=== PATIENT | male | born 1960 | race Caucasian/White ===

== ENCOUNTER 2017-03-23 21:02 | Emergency (ER) | payer BC, MEDICARE ==
[2017-03-23 21:15] VITALS: BP 147/81
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
== END 2017-03-23 22:45 | disposition home or self-care (01) ==
LOC: CC.ED 21:02
DX: S02.31XA Fracture of orbital floor, right side, initial encounter for closed fracture (principal); S00.412A Abrasion of left ear, initial encounter; S00.31XA Abrasion of nose, initial encounter; S00.01XA Abrasion of scalp, initial encounter; E11.9 Type 2 diabetes mellitus without complications; E03.9 Hypothyroidism, unspecified; Z88.8 Allergy status to other drugs, medicaments and biological substances; Z88.2 Allergy status to sulfonamides; Z79.4 Long term (current) use of insulin; Z94.1 Heart transplant status; Z87.891 Personal history of nicotine dependence; Y04.0XXA Assault by unarmed brawl or fight, initial encounter
CPT/HCPCS: 70450; 70486; 99284

== ENCOUNTER 2021-04-15 21:58 | Emergency (ER) | payer BC, MEDICARE ==
[2021-04-15 23:15] LABS: CHLORIDE,CL 95 mEq/L (98-106); SODIUM,NA 132 mEq/L (136-145)
[2021-04-16 01:08] VITALS: BP 142/89; PULSE 74
[2021-04-16] MEDS: Sodium Chloride 0.9% 1,000 ML ONE (01:28)
--- NOTE | 2021-04-16 09:29 | EDM.PDOC ---
ED HPI GENERAL MEDICAL PROBLEM - General Chief Complaint: General Stated Complaint: "have the flu" Time Seen by Provider: 04/15/21 22:20 Source of Information: Reports: Patient History Limitations: Reports: No Limitations - History of Present Illness INITIAL COMMENTS - FREE TEXT/NARRATIVE: Bruno Roe is a 60 year old male who presents to ER with complaints of diarrhea for the last 5-6 days. Has not had much of an appetite, occasional bouts of nausea. No vomiting. Not drinking as much as his norm. No sinus congestion, ear pain or sore throat. No fevers. No cough or chest congestion. Denies urinary complaints. Admits to feeling weak. Patient does have complicated history with past heart and lung transplants and throat cancer in the last year. Does much of his doctoring through [place]. Onset: Gradual Duration: Day(s):, Waxing/Waning Location: Reports: Abdomen Quality: Reports: Ache, Dull Severity: Mild Associated Symptoms: Reports: Malaise, Nausea/Vomiting, Weakness. Denies: Confusion, Chest Pain, Cough, Diaphoresis, Fever/Chills, Headaches, Shortness of Breath - Related Data Allergies Allergy/AdvReac Type Severity Reaction Status Date / Time amitriptyline Allergy unknown Verified 04/16/21 00:59 dronedarone [From Multaq] Allergy Cannot Verified 04/16/21 00:59 Remember hydrocodone Allergy Cannot Verified 04/16/21 00:59 Remember zolpidem [From Ambien] Allergy Cannot Verified 04/16/21 00:59 Remember Home Meds: Home Meds Famotidine [Take Home: Famotidine 20 MG, 3 Tab Pack] 1 tab PO BEDTIME 03/23/17 [History] Furosemide 40 mg PO DAILY 03/23/17 [History] Levothyroxine Sodium 125 mcg PO DAILY 03/23/17 [History] Losartan [Cozaar] 50 mg PO DAILY 03/23/17 [History] Rosuvastatin [Crestor] 20 mg PO DAILY 03/23/17 [History] Voriconazole 200 mg PO Q12H 03/23/17 [History] traMADol HCl [Tramadol HCl] 50 - 100 mg PO Q6H PRN 03/23/17 [History] Cholecalciferol (Vitamin D3) [Vitamin D3] 1,000 units PO DAILY 07/22/17 [History] Fluticasone Propionate [Flovent] 50 mcg INH BID PRN 07/22/17 [History] Multivitamin [Multi-Vitamin Daily] 1 tab PO DAILY 07/22/17 [History] Nph, Human Insulin Isophane [HumuLIN N] 25 unit SUBCUT WITHDINNER 07/22/17 [History] Nph, Human Insulin Isophane [HumuLIN N] 35 units SUBCUT WITHBREAKFAST 07/22/17 [History] Olopatadine HCl 1 drop EYEBOTH BID 07/22/17 [History] Sulfamethoxazole/Trimethoprim [Bactrim 400-80 MG] 1 tab PO Q48H 07/22/17 [History] amLODIPine Besylate [Amlodipine Besylate] 10 mg PO DAILY 07/22/17 [History] cycloSPORINE, Modified [Cyclosporine Modified] 50 mg PO BID 07/22/17 [History] fluorouraciL [Fluorouracil] 1 applic TOP DAILY 07/22/17 [History] mycophenolate mofetiL [Cellcept] 1,000 mg PO BID 07/22/17 [History] predniSONE [Magno] 4 mg PO DAILY 07/22/17 [History] Past Medical History Respiratory History: Reports: Sleep Apnea Endocrine/Metabolic History: Reports: Diabetes, Type II, Hypothyroidism Oncologic (Cancer) History: Reports: Malignant Melanoma Dermatologic History: Reports: Melanoma - Past Surgical History Cardiovascular Surgical History: Reports: Other (See Below) Other Cardiovascular Surgeries/Procedures: heart transplant Social & Family History - Family History Family Medical History: No Pertinent Family History - Tobacco Use Tobacco Use Status *Q: Never Tobacco User Second Hand Smoke Exposure: No ED ROS GENERAL - Review of Systems Review Of Systems: See Below Constitutional: Reports: Malaise, Weakness, Fatigue, Decreased Appetite. Denies: Fever, Chills HEENT: Denies: Sinus Problem, Throat Pain Respiratory: Reports: Shortness of Breath (states has chronic shortness of breath, does not feel any worse at this time) Cardiovascular: Denies: Chest Pain, Edema, Lightheadedness Endocrine: Reports: Fatigue GI/Abdominal: Reports: Abdominal Pain (dull ache at times), Diarrhea, Nausea. Denies: Hematochezia, Melena, Vomiting : Denies: Dysuria Musculoskeletal: Reports: No Symptoms Skin: Reports: No Symptoms Neurological: Reports: Weakness. Denies: Headache ED EXAM, GENERAL - Physical Exam Exam: See Below Exam Limited By: No Limitations General Appearance: Alert, WD/WN, No Apparent Distress Ears: Normal External Exam, Normal TMs Nose: Normal Inspection, Normal Mucosa, No Blood Throat/Mouth: Normal Inspection, Normal Oropharynx Head: Normocephalic Neck: Normal Inspection, Supple, Non-Tender Respiratory/Chest: No Respiratory Distress, Lungs Clear, Normal Breath Sounds Cardiovascular: Regular Rate, Rhythm, No Edema GI/Abdominal: Normal Bowel Sounds, Soft, Non-Tender Extremities: No Pedal Edema, Other (venous stasis changes to legs) Neurological: Alert, Oriented Skin Exam: Warm, Dry Course - Vital Signs Last Recorded V/S: Last Vital Signs Temp 99.1 F 04/16/21 01:00 Pulse 74 04/16/21 01:00 Resp 18 04/16/21 01:00 BP 142/89 H 04/16/21 01:00 Pulse Ox 95 04/16/21 01:00 - Orders/Labs/Meds Labs: Laboratory Tests 04/15/21 04/15/21 04/15/21 Range/Units 22:30 22:30 22:30 WBC 3.2 L (4.0-11.0) 10^3/uL RBC 6.00 (4.50-6.00) x10^6/uL Hgb 16.3 (14.0-18.0) g/dL Hct 49.6 (42.0-52.0) % MCV 82.7 L (83.0-97.0) fL MCH 27.2 (27.0-32.0) pg MCHC 32.9 (32.0-36.0) g/dL RDW Coeff of Giovanni 14.4 (11.0-15.0) % Plt Count 108 L (150-400) 10^3/uL Add Manual Diff Yes Neutrophils % (Manual) 69 (35-85) % Lymphocytes % (Manual) 18 L (21-55) % Monocytes % (Manual) 13 H (2-12) % Absolute Neutrophils 2.21 (1.80-7.00) 10^3/uL Lymphocytes # (Manual) 0.58 L (1.00-4.80) 10^3/uL Monocytes # (Manual) 0.42 (0.00-0.80) 10^3/uL Sodium (136-145) mEq/L Potassium (3.5-5.0) mEq/L Chloride (98-106) mEq/L Carbon Dioxide (21-32) mmol/L BUN (7-18) mg/dL Creatinine (0.7-1.3) mg/dL Est Cr Clr Drug Dosing Estimated GFR (MDRD) (>=60) mL/min Glucose (75-99) mg/dL Calcium (8.4-10.1) mg/dL Total Bilirubin (0.0-1.0) mg/dL AST (15-37) U/L ALT (12-78) U/L Alkaline Phosphatase (46-116) U/L C-Reactive Protein (0.2-0.8) mg/dL Total Protein (6.4-8.2) g/dL Albumin (3.4-5.0) g/dL Urine Color Yellow (YELLOW) Urine Appearance Slightly cloudy (CLEAR) Urine pH 6.5 (4.5-8.0) Ur Specific [place] 1.025 H (1.003-1.020) Urine Protein >=300 H (NEGATIVE) mg/dL Urine Glucose (UA) 500 H (NEGATIVE) mg/dL Urine Ketones Negative (NEGATIVE) mg/dL Urine Occult Blood Moderate H (NEGATIVE) Urine Nitrite Negative (NEGATIVE) Urine Bilirubin Negative (NEGATIVE) Urine Urobilinogen 0.2 (0.2-1.0) EU/dL Ur Leukocyte Esterase Negative (NEGATIVE) Urine RBC 5-10 H (0-5) /HPF Urine WBC 0-5 (0-5) /HPF Ur Squamous Epith Cells Few H (NOT SEEN) /HPF Amorphous Sediment Few H (NOT SEEN) /HPF Urine Bacteria Few H (NOT SEEN) /HPF SARS CoV-2 RNA Rapid STEFANI Positive H (NEGATIVE) 04/15/21 Range/Units 22:30 WBC (4.0-11.0) 10^3/uL RBC (4.50-6.00) x10^6/uL Hgb (14.0-18.0) g/dL Hct (42.0-52.0) % MCV (83.0-97.0) fL MCH (27.0-32.0) pg MCHC (32.0-36.0) g/dL RDW Coeff of Giovanni (11.0-15.0) % Plt Count (150-400) 10^3/uL Add Manual Diff Neutrophils % (Manual) (35-85) % Lymphocytes % (Manual) (21-55) % Monocytes % (Manual) (2-12) % Absolute Neutrophils (1.80-7.00) 10^3/uL Lymphocytes # (Manual) (1.00-4.80) 10^3/uL Monocytes # (Manual) (0.00-0.80) 10^3/uL Sodium 132 L (136-145) mEq/L Potassium 3.5 (3.5-5.0) mEq/L Chloride 95 L (98-106) mEq/L Carbon Dioxide 27 (21-32) mmol/L BUN 42 H (7-18) mg/dL Creatinine 2.3 H (0.7-1.3) mg/dL Est Cr Clr Drug Dosing TNP Estimated GFR (MDRD) 29 L (>=60) mL/min Glucose 287 H D (75-99) mg/dL Calcium 8.9 (8.4-10.1) mg/dL Total Bilirubin 0.3 (0.0-1.0) mg/dL AST 100 H (15-37) U/L ALT 74 (12-78) U/L Alkaline Phosphatase 129 H (46-116) U/L C-Reactive Protein 12.2 H (0.2-0.8) mg/dL Total Protein 7.4 (6.4-8.2) g/dL Albumin 2.2 L (3.4-5.0) g/dL Urine Color (YELLOW) Urine Appearance (CLEAR) Urine pH (4.5-8.0) Ur Specific [place] (1.003-1.020) Urine Protein (NEGATIVE) mg/dL Urine Glucose (UA) (NEGATIVE) mg/dL Urine Ketones (NEGATIVE) mg/dL Urine Occult Blood (NEGATIVE) Urine Nitrite (NEGATIVE) Urine Bilirubin (NEGATIVE) Urine Urobilinogen (0.2-1.0) EU/dL Ur Leukocyte Esterase (NEGATIVE) Urine RBC (0-5) /HPF Urine WBC (0-5) /HPF Ur Squamous Epith Cells (NOT SEEN) /HPF Amorphous Sediment (NOT SEEN) /HPF Urine Bacteria (NOT SEEN) /HPF SARS CoV-2 RNA Rapid STEFANI (NEGATIVE) Meds: Medications Discontinued Medications Generic Name Dose Route Start Last Admin Trade Name Freq PRN Reason Stop Dose Admin Sodium Chloride Confirm 04/15/21 22:27 04/16/21 01:28 Normal Saline Administered 04/15/21 22:28 Not Given Dose 1,000 mls @ as directed .ROUTE .K-MED ONE - Re-Assessments/Exams Free Text/Narrative Re-Assessment/Exam: 04/15 Justyn hines while seeing patient in ER. Labs reported out and viewed by paper copy at that time. Noted mild elevation of liver enzymes, creatinine elevated. WBC low. CRP high at 12.2. Discussed these with patient and . REviewed MyChart from [place]. No elevation of liver enzymes in past. Creatinine with last draw was 1.76. Patient felt to be dehydrated likely from persistent diarrhea. Discussed observation stay with IV fluids. Lab then called with notification of covid positive result. Want to be judicious then with IV fluids and patient feels can hydrate at home. Due to comorbidities, patient felt to be good candidate for ReGen. Would like to return after dinner to have infusion. notified as well and agrees with plan. Patient [place] the [place] from the hospital so advised to notify us of any change in status and can return back if feels need for admission. Departure - Departure Time of Disposition: 23:30 Disposition: Home, Self-Care 01 Condition: Fair Clinical Impression: COVID-19 in immunocompromised patient - Discharge Information *PRESCRIPTION DRUG MONITORING PROGRAM REVIEWED*: No *COPY OF PRESCRIPTION DRUG MONITORING REPORT IN PATIENT ZACHARIAH: No Referrals: Alex Arroyo MD [Primary Care Provider] - Forms: ED Department Discharge Sepsis Event Note (ED) - Evaluation Sepsis Screening Result: No Definite Risk
== END 2021-04-15 23:20 | disposition home or self-care (01) ==
LOC: CC.ED 21:58
DX: U07.1 COVID-19 (principal); E11.9 Type 2 diabetes mellitus without complications; E03.9 Hypothyroidism, unspecified; D84.89 Other immunodeficiencies; Z88.8 Allergy status to other drugs, medicaments and biological substances; Z88.5 Allergy status to narcotic agent; Z79.899 Other long term (current) drug therapy
CPT/HCPCS: 36415; 80053; 81001; 85025; 86140; 99284; U0002

== ENCOUNTER 2021-04-24 18:23 | Emergency (ER) | payer BC, MEDICARE ==
[2021-04-24] MEDS ORDERED: Albuterol/Ipratropium 3.0-0.5 MG/3 ML Neb Soln ONE (18:33)
[2021-04-24] MEDS ORDERED: Albuterol/Ipratropium 3.0-0.5 MG/3 ML Neb Soln NEB ONE (19:02)
--- NOTE | 2021-04-24 19:18 | EDM.PDOC ---
ED HPI GENERAL MEDICAL PROBLEM - General Chief Complaint: General Stated Complaint: weak Time Seen by Provider: 04/24/21 18:55 Source of Information: Reports: Patient History Limitations: Reports: No Limitations - History of Present Illness INITIAL COMMENTS - FREE TEXT/NARRATIVE: States that he had COVID April 15. He had monoclonal antibody infusion on the . Was doing OK at home until he fell about 5-6 days ago. He fell onto the left side of his chest and abdomen. He is having pain to the left abdomen at this time. States that it feels swollen compared to the right side. He states that it is worse with cough or certain movements. He states that he has been drinking powerade or gatorade today as he hasn't felt well and was trying to stay hydrated. He does not check his BS at home and reports that his last A1c at [place] was 7.6%. He is not able to tell me the numbers to the last creatinine and liver enzymes that he had at [facility] in November but states that they were normal. He was due to go to [place] this week for his 3 month follow up and it was postponed until May due to the COVID diagnosis. He states that he did feel very SOB earlier and was coughing more. He was given duoneb treatment when he arrived here as he was wheezing and that did improve his wheezing and he states that he felt better. He was able to cough up thick white mucus and he did feel better. Sats remain 90-93% on 3 liters oxygen. He states that he is not on oxygen at home. He reports that he normally runs at that sat on room air when he has had it checked at app. He does have cough that is congested and not productive at this time. He had heart transplant at [place] 2010. 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 Has return appt at [place] about every 3 months for these issues. Onset: Gradual Location: Reports: Chest, Abdomen Associated Symptoms: Reports: Cough. Denies: cough w sputum, Fever/Chills - Related Data Allergies Allergy/AdvReac Type Severity Reaction Status Date / Time amitriptyline Allergy unknown Verified 04/24/21 18:25 dronedarone [From Multaq] Allergy Cannot Verified 04/24/21 18:25 Remember hydrocodone Allergy Cannot Verified 04/24/21 18:25 Remember zolpidem [From Ambien] Allergy Cannot Verified 04/24/21 18:25 Remember Home Meds: Home Meds Levothyroxine Sodium 125 mcg PO DAILY 03/23/17 [History] Losartan [Cozaar] 50 mg PO DAILY 03/23/17 [History] Rosuvastatin [Crestor] 20 mg PO DAILY 03/23/17 [History] Voriconazole 200 mg PO Q12H 03/23/17 [History] traMADol HCl [Tramadol HCl] 50 - 100 mg PO Q6H PRN 03/23/17 [History] Cholecalciferol (Vitamin D3) [Vitamin D3] 1,000 units PO DAILY 07/22/17 [History] Multivitamin [Multi-Vitamin Daily] 1 tab PO DAILY 07/22/17 [History] Nph, Human Insulin Isophane [HumuLIN N] 25 unit SUBCUT WITHDINNER 07/22/17 [History] Nph, Human Insulin Isophane [HumuLIN N] 35 units SUBCUT WITHBREAKFAST 07/22/17 [History] Olopatadine HCl 1 drop EYEBOTH BID 07/22/17 [History] mycophenolate mofetiL [Cellcept] 1,000 mg PO BID 07/22/17 [History] predniSONE [Magno] 4 mg PO DAILY 07/22/17 [History] Famotidine 20 mg PO BEDTIME 04/24/21 [History] Itraconazole 200 mg PO DAILY 04/24/21 [History] Metoprolol Succinate 50 mg PO DAILY 04/24/21 [History] Sirolimus 0.5 mg PO DAILY 04/24/21 [History] Torsemide 20 mg PO DAILY 04/24/21 [History] cloNIDine [Catapres-TTS 1] 1 patch TD Q7D 04/24/21 [History] Past Medical History Respiratory History: Reports: Sleep Apnea Endocrine/Metabolic History: Reports: Diabetes, Type II, Hypothyroidism Oncologic (Cancer) History: Reports: Malignant Melanoma Dermatologic History: Reports: Melanoma - Past Surgical History Cardiovascular Surgical History: Reports: Other (See Below) Other Cardiovascular Surgeries/Procedures: heart transplant Social & Family History - Family History Family Medical History: No Pertinent Family History - Tobacco Use Tobacco Use Status *Q: Never Tobacco User Second Hand Smoke Exposure: No - Living Situation & Occupation Living situation: Reports: , with Spouse Occupation: Disabled ED ROS GENERAL - Review of Systems Review Of Systems: See Below Constitutional: Reports: Weakness. Denies: Fever, Chills HEENT: Reports: No Symptoms Respiratory: Reports: Shortness of Breath, Cough. Denies: Hemoptysis Cardiovascular: Reports: No Symptoms GI/Abdominal: Reports: Abdominal Pain. Denies: Constipation, Diarrhea, Distension, Nausea, Vomiting : Reports: No Symptoms Musculoskeletal: Reports: No Symptoms Neurological: Denies: Confusion, Dizziness, Headache, Syncope Psychiatric: Reports: No Symptoms ED EXAM, GENERAL - Physical Exam Exam: See Below Exam Limited By: No Limitations General Appearance: Alert, WD/WN, Moderate Distress Ears: Normal External Exam, Normal Canal Nose: Normal Inspection Throat/Mouth: Normal Inspection, Normal Oropharynx Head: Atraumatic, Normocephalic Neck: Normal Inspection, Supple, Non-Tender, Full Range of Motion Respiratory/Chest: Wheezing, Other (No tenderness to anterior rib cage.). No: Rales Cardiovascular: Regular Rate, Rhythm, No Edema GI/Abdominal: Normal Bowel Sounds, Tender (Tender to the left side of abdomen with any palpation. Bowel sounds are present to all quadrants.) Back Exam: Normal Inspection Extremities: Normal Inspection, No Pedal Edema Neurological: Alert, Oriented, Normal Cognition Skin Exam: Warm, Dry, Intact Course - Vital Signs Last Recorded V/S: Last Vital Signs Temp 98.0 F 04/24/21 18:25 Pulse 83 04/24/21 18:25 Resp 18 04/24/21 18:25 BP 126/82 04/24/21 18:25 Pulse Ox 87 L 04/24/21 18:25 - Orders/Labs/Meds Orders: Active Orders 24 hr Category Date Time Status Chest 2V [CR] Stat Exams 04/24/21 18:28 Ordered C-REACTIVE PROTEIN [CHEM] Stat Lab 04/24/21 18:50 Received CMP [COMPREHENSIVE METABOLIC PN,CMP] [CHEM] Stat Lab 04/24/21 18:50 Received Labs: Laboratory Tests 04/24/21 Range/Units 18:50 WBC 4.6 (4.0-11.0) 10^3/uL RBC 5.99 (4.50-6.00) x10^6/uL Hgb 16.2 (14.0-18.0) g/dL Hct 48.6 (42.0-52.0) % MCV 81.1 L (83.0-97.0) fL MCH 27.0 (27.0-32.0) pg MCHC 33.3 (32.0-36.0) g/dL RDW Coeff of Giovanni 14.2 (11.0-15.0) % Plt Count 154 (150-400) 10^3/uL Immature Gran % (Auto) 0.7 (0.0-4.9) % Neut % (Auto) 77.9 H (41-71) % Lymph % (Auto) 8.3 L (24-44) % [place] % (Auto) 12.7 H (0-10) % Eos % (Auto) 0.2 (0-6) % Baso % (Auto) 0.2 (0-1) % Neut # (Auto) 3.57 (1.80-8.00) x10^3/uL Lymph # (Auto) 0.38 L (0.60-5.00) 10^3/uL [place] # (Auto) 0.58 (0.00-1.50) 10^3/uL Eos # (Auto) 0.01 (0.00-1.50) 10^3/uL Baso # (Auto) 0.01 (0.00-0.50) 10^3/uL Immature Gran # (Auto) 0.03 (0.00-0.49) 10^3/uL Meds: Medications Discontinued Medications Generic Name Dose Route Start Last Admin Trade Name Freq PRN Reason Stop Dose Admin Albuterol/Ipratropium Confirm 04/24/21 18:33 Albuterol/Ipratropium 3.0-0.5 Mg/3 Ml Neb Soln Administered 04/24/21 18:34 Dose 3 ml .ROUTE .STK-MED ONE - Re-Assessments/Exams Free Text/Narrative Re-Assessment/Exam: 04/24/21 20:[address] Balta Joyner transplant MD at [facility]. Labs reviewed with the doctor and he does request that he be transferred and he is accepting MD. Will get additional labs that he requested prior to transfer. He did request that he be retested for COVID as he is immunocompromised. They will fly fixed wing to [place] to pick him up. We will transfer ALS to [place]. Departure - Departure Time of Disposition: 20:56 Disposition: DC/Tfer to Acute Hospital 02 Condition: Serious Clinical Impression: Hypoxia, COVID-19, Heart transplant recipient Renal failure (ARF), acute on chronic Qualifiers: Acute renal failure type: unspecified Chronic kidney disease stage: unspecified stage Qualified Code(s): N17.9 - Acute kidney failure, unspecified; N18.9 - Chronic kidney disease, unspecified Diabetes mellitus Qualifiers: Diabetes mellitus type: type 2 Diabetes mellitus care home insulin use: with care home use Diabetes mellitus complication status: with hyperglycemia Qualified Code(s): E11.65 - Type 2 diabetes mellitus with hyperglycemia; Z79.4 - termite exterminator helper (current) use of insulin - Discharge Information *PRESCRIPTION DRUG MONITORING PROGRAM REVIEWED*: Not Applicable *COPY OF PRESCRIPTION DRUG MONITORING REPORT IN PATIENT ZACHARIAH: Not Applicable Additional Instructions: Transfer to [place] per [place] fixed wing. [facility] ALS ambulance will transfer to [facility] to meet the plane. Sepsis Event Note (ED) - Evaluation Sepsis Screening Result: No Definite Risk - Focused Exam Vital Signs: Vital Signs Temp Pulse Resp BP Pulse Ox 04/24/21 18:25 98.0 F 83 18 126/82 87 L - Problem List & Annotations (1) Diabetes mellitus SNOMED Code(s): 58051508 Code(s): E11.9 - TYPE 2 DIABETES MELLITUS WITHOUT COMPLICATIONS Status: Acute Priority: High Current Visit: Yes Qualifiers: Diabetes mellitus type: type 2 Diabetes mellitus care home insulin use: with lobsterman use Diabetes mellitus complication status: with hyperglycemia Qualified Code(s): E11.65 - Type 2 diabetes mellitus with hyperglycemia; Z79.4 - custodial (current) use of insulin (2) Heart transplant recipient SNOMED Code(s): 357299583 Code(s): Z94.1 - HEART TRANSPLANT STATUS Status: Chronic Priority: Medium Current Visit: Yes (3) Hypoxia SNOMED Code(s): 028699098 Code(s): R09.02 - HYPOXEMIA Status: Acute Priority: High Current Visit: Yes (4) Renal failure (ARF), acute on chronic SNOMED Code(s): 293188012 Code(s): N17.9 - ACUTE KIDNEY FAILURE, UNSPECIFIED; N18.9 - CHRONIC KIDNEY DISEASE, UNSPECIFIED Status: Acute Current Visit: Yes Qualifiers: Acute renal failure type: unspecified Chronic kidney disease stage: unspecified stage Qualified Code(s): N17.9 - Acute kidney failure, unspecified; N18.9 - Chronic kidney disease, unspecified (5) COVID-19 SNOMED Code(s): 440493719 Code(s): U07.1 - COVID-19 Status: Acute Current Visit: Yes - Problem List Review Problem List Initiated/Reviewed/Updated: Yes - My Orders Last 24 Hours: My Active Orders 04/24/21 18:28 Chest 2V [CR] Stat 04/24/21 18:50 C-REACTIVE PROTEIN [CHEM] Stat CMP [COMPREHENSIVE METABOLIC PN,CMP] [CHEM] Stat - Assessment/Plan Last 24 Hours: My Active Orders 04/24/21 18:28 Chest 2V [CR] Stat 04/24/21 18:50 C-REACTIVE PROTEIN [CHEM] Stat CMP [COMPREHENSIVE METABOLIC PN,CMP] [CHEM] Stat
[2021-04-24] MEDS ORDERED: Sodium Chloride 0.9% 1,000 ML IV SCH (20:30)
[2021-04-24] MEDS ORDERED: 50% Dextrose in Water 50 ML Syringe IVPUSH PRN ×2 (20:31→21:50)
[2021-04-24] MEDS ORDERED: Insulin Lispro 100 Units/ML 3 ML Vial SUBCUT STA ×2 (20:31→21:50)
[2021-04-24] MEDS ORDERED: Glucagon,Human Recombinant 1 MG Vial IM PRN ×2 (20:31→21:50)
[2021-04-24 21:16] VITALS: BP 124/84; PULSE 87
[2021-04-25] MEDS ORDERED: fentaNYL 100 MCG/2 ML SDV ONE (02:16)
== END 2021-04-24 22:07 ==
LOC: CC.ED 18:23
DX: U07.1 COVID-19 (principal); E11.65 Type 2 diabetes mellitus with hyperglycemia; E11.22 Type 2 diabetes mellitus with diabetic chronic kidney disease; N18.9 Chronic kidney disease, unspecified; N17.9 Acute kidney failure, unspecified; E03.9 Hypothyroidism, unspecified; Z88.5 Allergy status to narcotic agent; Z88.8 Allergy status to other drugs, medicaments and biological substances; Z79.899 Other long term (current) drug therapy; Z79.4 Long term (current) use of insulin; Z94.1 Heart transplant status
CPT/HCPCS: 36415; 71046; 80053; 82947; 83605; 84484; 85025; 85379; 86140; 94640; 99285-25; J1815-GY; J7030; J7620-GY; U0002

== ENCOUNTER → 2022-01-16 | Day surgery (SDC) | payer BC, MEDICARE ==
[~2022-01-16] MED LIST: 50% Dextrose in Water 50 ML Syringe IVPUSH ONE; 50% Dextrose in Water 50 ML Syringe ONE; Lactated Ringers 1,000 ML IV SCH; Midazolam 1 MG/ML 2 ML SDV ONE; Propofol 200 MG/20 ML SDV ONE; fentaNYL 100 MCG/2 ML SDV ONE
[2022-01-16 09:37] VITALS: BP 165/85; PULSE 73
== END ==
LOC: CC.SDS 07:05
PROVIDERS: ATTEND Family Medicine
DX: Z12.11 Encounter for screening for malignant neoplasm of colon (principal); K57.30 Diverticulosis of large intestine without perforation or abscess without bleeding; D12.3 Benign neoplasm of transverse colon; N40.0 Benign prostatic hyperplasia without lower urinary tract symptoms; M10.9 Gout, unspecified; E78.5 Hyperlipidemia, unspecified; I48.91 Unspecified atrial fibrillation; G47.33 Obstructive sleep apnea (adult) (pediatric); I13.0 Hypertensive heart and chronic kidney disease with heart failure and stage 1 through stage 4 chronic kidney disease, or unspecified chronic kidney disease; E10.22 Type 1 diabetes mellitus with diabetic chronic kidney disease; I50.9 Heart failure, unspecified; N18.9 Chronic kidney disease, unspecified; E10.9 Type 1 diabetes mellitus without complications; Z88.8 Allergy status to other drugs, medicaments and biological substances; Z88.7 Allergy status to serum and vaccine; Z95.0 Presence of cardiac pacemaker; Z79.899 Other long term (current) drug therapy; Z79.890 Hormone replacement therapy; Z87.891 Personal history of nicotine dependence
CPT/HCPCS: 00812; 82947; 88305; J2250; J2704; J3010; J7120

== ENCOUNTER 2022-07-03 21:10 | Emergency (ER) | payer BC, MEDICARE ==
[2022-07-03 21:21] VITALS: BP 132/81; PULSE 78
== END 2022-07-03 21:37 | disposition home or self-care (01) ==
LOC: CC.ED 21:10
DX: E11.649 Type 2 diabetes mellitus with hypoglycemia without coma (principal); Z88.5 Allergy status to narcotic agent; Z88.8 Allergy status to other drugs, medicaments and biological substances; Z79.899 Other long term (current) drug therapy; Z79.4 Long term (current) use of insulin
CPT/HCPCS: 99284

== ENCOUNTER 2023-09-04 17:07 | Emergency (ER) | payer MEDICARE, BC ==
[2023-09-04 17:20] VITALS: BP 165/97; PULSE 96
[2023-09-04 17:37] LABS: BASOPHILS ABSOLUTE AUTO 0.03 10^3/uL (0.00-0.50); BASOPHILS PERCENT AUTO 0.5 % (0-1); EOSINOPHILS ABSOLUTE AUTO 0.04 10^3/uL (0.00-1.50); EOSINOPHILS PERCENT AUTO 0.6 % (0-6); HEMATOCRIT 38.7 % (42.0-52.0); HEMOGLOBIN 12.5 g/dL (14.0-18.0); IMMATURE GRAN PERCENT AUTO 1.6 % (0.0-4.9); LYMPHOCYTES ABSOLUTE AUTO 0.61 10^3/uL (0.60-5.00); LYMPHOCYTES PERCENT AUTO 9.7 % (24-44); MEAN CORPUSCULAR HEMOGLOBIN 27.1 pg (27.0-32.0); MEAN CORPUSCULAR HGB CONC 32.3 g/dL (32.0-36.0); MEAN CORPUSCULAR VOLUME 83.8 fL (83.0-97.0); MONOCYTES ABSOLUTE AUTO 0.94 10^3/uL (0.00-1.50); NEUTROPHILS ABSOLUTE AUTO 4.55 x10^3/uL (1.80-8.00); NEUTROPHILS PERCENT AUTO 72.6 % (41-71); PLATELET COUNT,PLT 193 10^3/uL (150-400); RED BLOOD CELL COUNT 4.62 x10^6/uL (4.50-6.00); WHITE BLOOD CELL COUNT,WBC 6.3 10^3/uL (4.0-11.0)
[2023-09-04 17:51] LABS: APPEARANCE,URINE CLEAR (CLEAR); BILIRUBIN,URINE NEGATIVE (NEGATIVE); COLOR,URINE YELLOW (YELLOW); GLUCOSE,URINE NEGATIVE (NEGATIVE); KETONES,URINE NEGATIVE (NEGATIVE); LEUKOCYTE ESTERASE,URINE NEGATIVE (NEGATIVE); NITRITE,URINE NEGATIVE (NEGATIVE); OCCULT BLOOD,URINE MODERATE (NEGATIVE); PROTEIN,URINE 100 mg/dL (NEGATIVE); UROBILINOGEN,URINE 0.2 EU/dL (0.2-1.0)
[2023-09-04 17:55] LABS: ALANINE AMINOTRANSFERASE,ALT 60 U/L (12-78); ALBUMIN 3.4 g/dL (3.4-5.0); ALKALINE PHOSPHATASE 77 U/L (46-116); ASPARTATE AMNIOTRANSFERASE,AST 59 U/L (15-37); BILIRUBIN TOTAL 0.7 mg/dL (0.0-1.0); BLOOD UREA NITROGEN,BUN 36 mg/dL (7-18); CALCIUM 9.6 mg/dL (8.4-10.1); CARBON DIOXIDE,CO2 24 mmol/L (21-32); CHLORIDE,CL 104 mEq/L (98-106); CREATININE 2.1 mg/dL (0.7-1.3); EST CRCL DRUG DOSING (CG) 33.93 mL/min; GLUCOSE RANDOM 114 mg/dL (75-99); MAGNESIUM 2.1 mg/dL (1.8-2.4); POTASSIUM,K 3.6 mEq/L (3.5-5.0); PROTEIN TOTAL,TP 6.7 g/dL (6.4-8.2); SODIUM,NA 141 mEq/L (136-145)
[2023-09-04 17:57] LABS: C-REACTIVE PROTEIN < 0.50 mg/dL (<=0.50); ESTIMATED GFR 34 mL/min (>=60)
[2023-09-04 18:00] LABS: WBC,URINE 0-5 /HPF (0-5)
[2023-09-04 18:01] LABS: BACTERIA,URINE RARE /HPF (NOT SEEN); EPITHELIAL CELLS,URINE RARE /HPF (NOT SEEN)
[2023-09-04] MEDS: Take Home: Cyclobenzaprine 10 MG Tab, 4 Tab Pack PO ONE (18:31)
== END 2023-09-04 18:44 | disposition home or self-care (01) ==
LOC: CC.ED 17:07
DX: M25.552 Pain in left hip (principal); E11.9 Type 2 diabetes mellitus without complications; Z79.899 Other long term (current) drug therapy; Z88.5 Allergy status to narcotic agent; Z88.8 Allergy status to other drugs, medicaments and biological substances
CPT/HCPCS: 36415; 80053; 81001; 83735; 84484; 85025; 86140; 93005; 93010; 99284; A9270-GY

== ENCOUNTER 2025-05-10 18:55 | Observation (INO) | payer MEDICARE, BC ==
[2025-05-10 19:53] LABS: INR 1.0 (0.92-1.18); PTT,PARTIAL THROMBOPLSTIN TIME 23.5 SEC (20.0-30.0)
[2025-05-10 20:02] LABS: PRO B-TYPE NATRIUR PEPT,BNPPRO 476.0 pg/mL (0-1000)
[2025-05-10] MEDS: Lactated Ringers 1,000 ML IV SCH (21:42)
[2025-05-10] MEDS: Heparin Sodium 5,000 Units/ML Vial IVPUSH ONE (21:42)
[2025-05-10] MEDS: Heparin Sodium/0.45% NaCl 25,000 UNITS/250 ML BAG IV SCH (21:43)
[2025-05-10] MEDS ORDERED: Sodium Chloride 0.9% 10 ML Syringe FLUSH PRN (22:19)
[2025-05-10] MEDS ORDERED: Ondansetron 4 MG Tab.DIS PO PRN (22:19)
[2025-05-10] MEDS ORDERED: Ondansetron 4 MG/2 ML SDV IV PRN (22:19)
[2025-05-11] MEDS ORDERED: Heparin Sodium/0.45% NaCl 25,000 UNITS/250 ML BAG IV SCH (06:15)
[2025-05-11] MEDS: Multivitamins with Iron/Calcium/Folic Acid/Minerals Tab PO SCH (08:04)
[2025-05-11] MEDS: Cholecalciferol (Vitamin D3) 25 MCG Tab PO SCH (08:07)
[2025-05-11 08:11] LABS: BASOPHILS ABSOLUTE AUTO 0.03 10^3/uL (0.00-0.50); BASOPHILS PERCENT AUTO 0.6 % (0-1); EOSINOPHILS ABSOLUTE AUTO 0.09 10^3/uL (0.00-1.50); EOSINOPHILS PERCENT AUTO 1.7 % (0-6); IMMATURE GRAN ABSOLUTE AUTO 0.26 10^3/uL (0.00-0.49); IMMATURE GRAN PERCENT AUTO 5.0 % (0.0-4.9); LYMPHOCYTES ABSOLUTE AUTO 0.93 10^3/uL (0.60-5.00); LYMPHOCYTES PERCENT AUTO 17.8 % (24-44); MONOCYTES ABSOLUTE AUTO 0.94 10^3/uL (0.00-1.50); MONOCYTES PERCENT AUTO 18.0 % (0-10); NEUTROPHILS ABSOLUTE AUTO 2.98 x10^3/uL (1.80-8.00); NEUTROPHILS PERCENT AUTO 56.9 % (41-71); PLATELET COUNT,PLT 208 10^3/uL (150-400); RED BLOOD CELL COUNT 3.53 x10^6/uL (4.50-6.00); WHITE BLOOD CELL COUNT,WBC 5.2 10^3/uL (4.0-11.0)
[2025-05-11] MEDS: Insulin Glarg,Human.Rec.Analog 100 Unit/ML 10 ML Vial SUBCUT SCH (08:12)
[2025-05-11 09:50] LABS: ALANINE AMINOTRANSFERASE,ALT 34.0 U/L (12-78); ASPARTATE AMNIOTRANSFERASE,AST 29.0 U/L (15-37); BILIRUBIN TOTAL 0.7 mg/dL (0.0-1.0); BLOOD UREA NITROGEN,BUN 42.0 mg/dL (7-18); CARBON DIOXIDE,CO2 25.0 mmol/L (21-32); CHLORIDE,CL 107.0 mEq/L (98-106); CREATININE 2.4 mg/dL (0.7-1.3); EST CRCL DRUG DOSING (CG) 28.8 mL/min; ESTIMATED GFR 29.0 mL/min (>=60); GLUCOSE RANDOM 121.0 mg/dL (75-99); POTASSIUM,K 3.8 mEq/L (3.5-5.0); PROTEIN TOTAL,TP 5.0 g/dL (6.4-8.2); SODIUM,NA 139.0 mEq/L (136-145)
[2025-05-11] MEDS: MYCOPHENOLATE MOFETIL 250 MG PO SCH (09:59)
[2025-05-11] MEDS: SIROLIMUS 0.5 MG PO SCH (09:59)
[2025-05-11] MEDS: ITRACONAZOLE 100 MG PO SCH (09:59)
[2025-05-11 12:31] VITALS: BP 149/68; PULSE 82
[2025-05-11] MEDS ORDERED: Insulin Glarg,Human.Rec.Analog 100 Unit/ML 10 ML Vial SUBCUT SCH (17:30)
[2025-05-14] MEDS ORDERED: cloNIDine 0.1 MG/Day Transdermal Patch TOP SCH (08:00)
== END 2025-05-11 15:05 ==
LOC: CC.ED 18:55 → UNDOADMOB 21:20 → CC.MS 21:20
PROVIDERS: ADMIT Nurse Practitioner Family; ATTEND Nurse Practitioner Family
DX: I26.99 Other pulmonary embolism without acute cor pulmonale (principal); R09.02 Hypoxemia; R06.02 Shortness of breath; R79.89 Other specified abnormal findings of blood chemistry; N17.9 Acute kidney failure, unspecified; E78.00 Pure hypercholesterolemia, unspecified; I12.9 Hypertensive chronic kidney disease with stage 1 through stage 4 chronic kidney disease, or unspecified chronic kidney disease; E11.22 Type 2 diabetes mellitus with diabetic chronic kidney disease; N18.9 Chronic kidney disease, unspecified; E03.9 Hypothyroidism, unspecified; Z94.1 Heart transplant status; Z88.8 Allergy status to other drugs, medicaments and biological substances; Z88.5 Allergy status to narcotic agent; Z79.890 Hormone replacement therapy; Z79.899 Other long term (current) drug therapy; R09.89 Other specified symptoms and signs involving the circulatory and respiratory systems; E11.40 Type 2 diabetes mellitus with diabetic neuropathy, unspecified; Z79.4 Long term (current) use of insulin
CPT/HCPCS: 36415; 71045; 71046; 80053; 82947; 83880; 84484; 85025; 85379; 85610; 85730; 86140; 93005; 93010; 96365; 96366; 99223; 99239; 99285-25; A9270-GY; G0378; J1644; J1815-GY; J7030; J7120; J7512